=== PATIENT | female | born 1965 | race African-American/Black ===

== ENCOUNTER 2016-09-09 02:39 | Emergency (ER) | payer OTHER ==
[~2016-09-09] VITALS: Ht 160 cm; Wt 81.6 kg
--- NOTE | 2016-09-09 02:39 | NUR ---
Patient was BIB [facility] at this time.
[2016-09-09 02:47] VITALS: BP 155/97
--- NOTE | 2016-09-09 03:15 | NUR ---
Dr. Horne evaluating patient.
[2016-09-09 03:45] VITALS: BP 163/88
--- NOTE | 2016-09-09 03:45 | NUR ---
Patient discharged with v/s stable. Written and verbal after care instructions given and explained. Patient verbalized understanding. Ambulatory with steady gait. All questions addressed prior to discharge. Advised to follow up with PMD.
== END 2016-09-09 03:45 ==
LOC: MED 02:39
DX: Z02.89 Encounter for other administrative examinations (principal); Z04.1 Encounter for examination and observation following transport accident